=== PATIENT | female | born 1945 | race Caucasian/White ===

== ENCOUNTER 2018-09-29 06:22 | Day surgery (SDC) | payer OTHER, MEDICARE ==
[2018-09-24 11:48] VITALS: BMI 19.5
[2018-09-29] MEDS ORDERED: PROPOFOL 20 ML ONE ×2 (06:59)
[2018-09-29] MEDS ORDERED: MIDAZOLAM HCL 2 MG/2 ML SINGLE DOSE VIAL ONE (06:59)
[2018-09-29] MEDS ORDERED: TETRACAINE 0.5% OPHTH SOLN 2 ML BOTTLE ONE (07:08)
[2018-09-29] MEDS ORDERED: LIDOCAINE 1%/EPI 1:100000 (20 ML MULTI DOSE VIAL) ONE (07:08)
[2018-09-29] MEDS ORDERED: BUPIVACAINE HCL/PF 0.5% (5MG/ML) 10 ML VIAL ONE (07:08)
[2018-09-29] MEDS ORDERED: POVIDONE-IODINE 5% OPHTHALMIC PREP 30 ML SOLUTION ONE (07:08)
[2018-09-29] MEDS ORDERED: ERYTHROMYCIN 0.5% OPHTHALMIC OINTMENT 3.5 GM TUBE ONE (07:08)
[2018-09-29] MEDS ORDERED: ONDANSETRON 4 MG/2 ML VIAL ONE (08:17)
[2018-09-29] MEDS ORDERED: DEXAMETHASONE SOD PHOSPHATE 4 MG/1 ML VIAL ONE (08:17)
[2018-09-29] MEDS ORDERED: oxyCODONE HCL 5 MG TABLET PO PRN (09:23)
[2018-09-29] MEDS ORDERED: ONDANSETRON 4 MG/2 ML VIAL IVPUSH PRN (09:23)
[2018-09-29] MEDS ORDERED: LACTATED RINGERS SOLUTION 1,000 ML IV SCH (09:30)
[2018-09-29 09:36] VITALS: TEMP 97.8
[2018-09-29 10:43] VITALS: BP 112/69; PULSE 74
--- NOTE | 2018-09-29 10:45 | OP ---
DATE OF OPERATION: 09/29/2018 PREOPERATIVE DIAGNOSIS: Basal cell carcinoma, left upper lid, status post excision. POSTOPERATIVE DIAGNOSIS: Basal cell carcinoma, left upper lid, status post excision. PROCEDURE: Reconstruction of left upper lid with debridement, lateral myocutaneous flap from the lateral canthus, and a nasal vertical myocutaneous flap from the eyelid. SURGEON: Han Barney MD ANESTHESIA: Local with sedation. COMPLICATONS: None. ESTIMATED BLOOD LOSS: 3-4 mL. OPERATION REPORT: Patient was brought to the operating room, placed on the operating room table. Vital signs monitored by Anesthesia. Tetracaine was placed in both eyes. Wound was photographed. Following which, gloves were placed and attempts were made to advance the skin inferiorly. This defect was just above the lash line into the eyelid above in the pretarsal skin and orbicularis. It was determined that she had shortage of skin in this area, and it would not be possible just to close it directly vertically without lid retraction. Therefore, the patient was given after intravenous sedation a 50/50 mixture of 2% Xylocaine with 1:100,000 epinephrine, 0.5% Marcaine for 2-3 mL around the eyelid and lateral canthus. The incision was extended out beyond the lateral canthus, and a skin muscle flap was developed after prepping and draping in the usual sterile fashion. A skin muscle flap was developed laterally out beyond the lateral canthus, and then, the incision was extended as noted and the skin muscle flap was advanced nasally creating most of the tension on horizontal plane. The skin muscle flap was advanced and secured to the lash lines and deep tissues just above the lash line with a buried 7-0 Vicryl suture and additional 7-0 Vicryl sutures to close it along its length, and additiona skin muscle flap was taken from the nasal portion of the eyelid in a slight vertical fashion now that the wound had been minimized, and this was also brought down and sutured to just above the lash line meeting the temporal advanced skin muscle flap. This was also secured with a 7-0 Vicryl buried suture. The standing cutaneous deformities laterally and superiorly at the junction of the 2 flaps were excised with Burows triangles. The wounds were then closed with 7-0 Vicryl sutures as needed for the deep tissues and running 6-0 nylon across the nasal portion and central portion of the eyelid, and then, running and interrupted 6-0 plain suture in the lateral advancement flap and on the vertical limb where the 2 flaps join vertically in the eyelids. Erythromycin ointment was placed over the sutures. The patient was taken to the recovery room in stable condition. HAN BARNEY M.D. BERNADETTE/[id number]
== END 2018-09-29 11:05 | disposition home or self-care (01) ==
LOC: FASU 06:22
PROVIDERS: ATTEND Ophthalmology
PROC: 0JB10ZZ Excision of Face Subcutaneous Tissue and Fascia, Open Approach (ICD-10-PCS; 2018-09-29)
PROC: 0KX10ZZ Transfer Facial Muscle, Open Approach (ICD-10-PCS; 2018-09-29)
PROC: 0JX10ZB Transfer Face Subcutaneous Tissue and Fascia with Skin and Subcutaneous Tissue, Open Approach (ICD-10-PCS; principal; 2018-09-29 08:19)
DX: C44.1191 Basal cell carcinoma of skin of left upper eyelid, including canthus (principal)
CPT/HCPCS: 94760